=== PATIENT | female | born 1980 | race Native Hawaiian/Other Pacific Islander ===

== ENCOUNTER 2016-10-18 22:40 | Outpatient (CLI) | payer OTHER ==
[~2016-10-18 22:40] MED LIST: CEPH500C20 PO; GABA300C2 PO; ROBAXIN-750750 MG PO; TRAM50TA PO
== END 2016-10-18 22:52 | disposition short-term general hospital (02) ==
LOC: AMB 22:40
DX: M79.651 Pain in right thigh (principal); S40.022A Contusion of left upper arm, initial encounter; S40.021A Contusion of right upper arm, initial encounter; S80.12XA Contusion of left lower leg, initial encounter; S80.11XA Contusion of right lower leg, initial encounter; V48.0XXA Car driver injured in noncollision transport accident in nontraffic accident, initial encounter; Y92.414 Local residential or business street as the place of occurrence of the external cause
CPT/HCPCS: A0425; A0429

== ENCOUNTER 2016-10-25 20:02 | Emergency (ER) | payer OTHER ==
[~2016-10-25] VITALS: Ht 160 cm; Wt 83.0 kg
[2016-10-25] MEDS ORDERED: ROBAXIN-750750 MG PO (20:33)
[2016-10-25] MEDS ORDERED: IBUPROFEN200 M1 PO (20:34)
== END 2016-10-25 22:59 | disposition home or self-care (01) ==
LOC: ED 20:02
DX: S40.012A Contusion of left shoulder, initial encounter (principal); S20.222A Contusion of left back wall of thorax, initial encounter
CPT/HCPCS: 99282